=== PATIENT | male | born 1975 | race Caucasian/White ===

== ENCOUNTER 2023-09-25 21:15 | Emergency (ER) | payer SELFPAY ==
[2023-09-25 21:17] VITALS: BP 115/70; PULSE 85; RESP 17; TEMP 36.8; O2SAT 95; BMI 22.4
--- NOTE | 2023-09-25 21:31 | [facility].EDGENADL ---
Discharge Plan Disposition Patient Disposition: Home, Self-Care Condition: Good Prescriptions Prescriptions: New amoxicillin-pot clavulanate 875-125 mg tablet 1 tab PO BID 7 Days Qty: 14 0RF Referrals Follow up/Referrals: Provider,Referral, [Primary Care Provider] - See instructions Activity Restrictions/Add. Instructions Additional Instructions/Restrictions: Please take Augmentin as prescribed for treatment of dental infection. Please see a dentist as soon as possible for definitive care. Please take Tylenol 1 g every next hours and ibuprofen 600 mg every 6 hours as needed for pain. Clinical Impressions Clinical Impression: Acute pulpitis, Fracture of tooth enamel and dentin Discharge ED Provider: Elio Oreilly General Adult HPI General Chief complaint: Dental/Oral Stated complaint: severe toothache Time Seen by Provider: 09/25/23 21:23 Mode of Arrival: Ambulatory Source of Information: Patient Limitations: No Limitations Description of Symptoms (Recalled from ER Triage Doc. by RN): Presents to ED with c/o right sided jaw/tooth pain that started 3 days ago. Patient states he has a cracked tooth that has resulted in swelling in hi face. Denies fever vessel captain or medication. Denies being seen by a denist for this problem. History of Present Illness HPI narrative: 48-year-old male, does not see doctors, presents with right mandibular posterior tooth pain. He reports that one of his teeth cracked a few days ago and has been worsening in pain. He denies fevers or systemic symptoms but does report some pain in the right ear. He has not been able to see a dentist yet. Related Data Previous Rx's Medication Instructions Recorded amoxicillin 875 mg-potassium 1 tab PO BID 7 days #14 tabs 09/25/23 clavulanate 125 mg tablet Allergies Allergy/AdvReac Type Severity Reaction Status Date / Time No Known Allergies Allergy Verified 09/25/23 21:25 [facility] Disclaimer: The information contained in this section may have been updated after the patient was seen, as this information can be updated by other users. Social History Smoking Status: Current every day smoker alcohol intake: never current occupational status: other Travel in the last 8 weeks: None ROS Obtained: Yes All systems reviewed & no additional complaints except as documented Physical Exam General General appearance: alert and in no apparent distress Head Head exam: atraumatic and normocephalic Eye Eye exam: Present normal appearance, PERRL and EOMI ENT ENT exam: Present TM's normal bilaterally, normal external ear exam and other (Poor dentition, specifically: Right mandibular most posterior molar is cracked and rotten. No fluctuance or significant swelling noted to suggest abscess.) Neck Neck exam: Present normal inspection and full ROM Chest Chest inspection: Present normal inspection and symmetric chest wall rise; Absent tenderness Respiratory Respiratory exam: Present normal lung sounds bilaterally; Absent respiratory distress Cardiovascular Cardiovascular exam: Present regular rate and normal rhythm Abdominal Exam Abdominal exam: Present soft; Absent distention, tenderness or guarding Extremities Exam Extremities exam: Present normal inspection; Absent edema or joint swelling Back Exam Back exam: Present normal inspection; Absent tenderness Neurological Exam Neurological exam: Present alert and oriented X3; Absent motor sensory deficit Psychiatric Psychiatric exam: Present normal affect and normal mood Skin Skin exam: Present warm, dry and normal color Lymphatic Lymphatic Findings: no adenopathy Medical Decision Making Medical Records Medical records reviewed: Yes I reviewed the patient's medical records. Stuart Inquiry Pt receiving controlled substance: No Stuart was queried for this patient: No Vital Signs: 09/25/23 21:17 09/25/23 21:39 Temperature 98.3 F 98.3 F Temperature Source Oral Oral Pulse Rate
[2023-09-25 21:39] VITALS: BP 115/70; PULSE 85; RESP 16; TEMP 36.8; O2SAT 95
== END 2023-09-25 21:50 | disposition home or self-care (01) ==
PROVIDERS: Emergency Provider Emergency Medicine
DX: K03.81 Cracked tooth (principal); K04.01 Reversible pulpitis; R68.84 Jaw pain; F17.210 Nicotine dependence, cigarettes, uncomplicated
CPT/HCPCS: 99283